=== PATIENT | male | born 1990 | race African-American/Black ===

== ENCOUNTER 2019-03-28 21:41 | Emergency (ER) | payer OTHER ==
[~2019-03-28] VITALS: Ht 185.4 cm; Wt 99.8 kg
[2019-03-28 21:45] VITALS: BP 116/66
[2019-03-28] MEDS ORDERED: Acetaminophen 500mg (ES) tab ORAL ONE (21:45)
[2019-03-28] MEDS ORDERED: Tetanus/Diptheria/Pertussis IM ONE (21:45)
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
[2019-03-28] MEDS ORDERED: Neosporin Oint 15gm TOPIC SCH (22:00)
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
[2019-03-28] MEDS ORDERED: NAPROXEN250 MG ORAL (22:34)
[2019-03-28 23:30] VITALS: BP 116/66
--- NOTE | 2019-03-28 23:30 | NUR ---
ER Nurse Note: Pt seen, treated, medically cleared for discharge by ERMD. Discharge instuctions and prescriptions given with repeat verbalization by pt. Emphasized to follow up with primay care provider; take whole course of medication. Explained each medication. All orders completed per ERMD orders. Pt a&ox4, VSS, no signs of distress. Wound care completed, applied ointment. ID band removed. All questions answered per pt's questions. Provided pt with food, juice, clothes. Pt left with all belongings, pending transportation via taxi.
== END 2019-03-28 23:30 | disposition home or self-care (01) ==
LOC: EDBD 21:41 → EMR 21:58
DX: S09.8XXA Other specified injuries of head, initial encounter (principal); Z23 Encounter for immunization; S80.212A Abrasion, left knee, initial encounter; S80.211A Abrasion, right knee, initial encounter; S40.212A Abrasion of left shoulder, initial encounter; Y04.8XXA Assault by other bodily force, initial encounter; Y92.9 Unspecified place or not applicable; F31.9 Bipolar disorder, unspecified
CPT/HCPCS: 70450; 90471; 90715; 99284